=== PATIENT | male | born 1990 | race Caucasian/White ===

== ENCOUNTER 2017-10-29 00:37 | Emergency (ER) | payer SELFPAY ==
[2017-10-29 00:44] VITALS: BP 148/75
--- NOTE | 2017-10-29 01:09 | ED ---
Lower Extremity - HPI Summary HPI Summary: This is scribe Aris Roblero documenting for attending Radha Cardozo MD. This patient is a 26 year old M presenting to [facility] with a chief complaint of intermittent pain bilat in ankles for the past week. The patient rates the pain 4/10 in severity. Patient reports swelling tonight, dry and flaky skin on his ankles (worsening this past month), and erythema on his ankles the other day. Patient denies recent trauma but states that he wears work boots. He denies an abscess on his ankles beforehand. He has not taken any medications. I, Dr. Cardozo, personally performed the services described in this documentation as scribed in my presence and it is both accurate and complete. - History of Current Complaint Chief Complaint: EDExtremityLower Stated Complaint: POSSIBLE INFECTION LEFT FOOT Time Seen by Provider: 10/29/17 00:49 Hx Obtained From: Patient Onset of Pain: Days - Pain started this past week Onset/Duration: Days - Started this past week Severity Initially: Moderate Severity Currently: Moderate Pain Intensity: 4 Pain Scale Used: 0-10 Numeric Timing: Intermittent Associated Signs And Symptoms: Positive: Swelling, Redness - Allergies/Home Medications Allergies/Adverse Reactions: Allergies Allergy/AdvReac Type Severity Reaction Status Date / Time MS Penicillins [Penicillins] Allergy Hives Verified 01/20/13 10:03 PMH/Surg Hx/FS Hx/Imm Hx Endocrine/Hematology History: Denies: Hx Diabetes Cardiovascular History: Denies: Hx Coronary Artery Disease - Immunization History Date of Tetanus Vaccine: 2006 Date of Influenza Vaccine: None Infectious Disease History: No Infectious Disease History: Denies: Traveled Outside the [place] in Last 30 Days - Family History Known Family History: Negative: Cardiac Disease, Diabetes - Social History Occupation: Unemployed Substance Use Type: Reports: Marijuana Review of Systems Positive: Edema - Ankles bilaterally since tonight, Other - Intermittant pain bilaterally in ankles Positive: Other - Dry and flaky skin on his ankles that has worsened this past month. Erythema on his ankels "the other day." Denies an abscess. All Other Systems Reviewed And Are Negative: Yes Physical Exam - Summary Physical Exam Summary: VITAL SIGNS: Reviewed. GENERAL: Patient is a well-developed and nourished MALE who is lying comfortable in the stretcher. Patient is not in any acute respiratory distress. HEAD AND FACE: No signs of trauma. No ecchymosis, hematomas or skull depressions. No sinus tenderness. EYES: PERRLA, EOMI x 2, No injected conjunctiva, no nystagmus. EARS: Hearing grossly intact. Ear canals and tympanic membranes are within normal limits. MOUTH: Oropharynx within normal limits. NECK: Supple, trachea is midline, no adenopathy, no JVD, no carotid bruit, no c- spine tenderness, neck with full ROM. CHEST: Symmetric, no tenderness at palpation LUNGS: Clear to auscultation bilaterally. No wheezing or crackles. CVS: Regular rate and rhythm, S1 and S2 present, no murmurs or gallops appreciated. ABDOMEN: Soft, non-tender. No signs of distention. No rebound no guarding, and no masses palpated. Bowel sounds are normal. EXTREMITIES: Bilat LE trace edema, L more than R. 1 inch by half inch area of mild redness over medial side of L foot. NEURO: Alert and oriented x 3. No acute neurological deficits. Speech is normal and follows commands. SKIN: Dry and warm Triage Information Reviewed: Yes Vital Signs On Initial Exam: Initial Vitals Temp Pulse Resp BP Pulse Ox 98.4 F 78 18 148/75 100 10/29/17 00:42 10/29/17 00:42 10/29/17 00:42 10/29/17 00:42 10/29/17 00:42 Vital Signs Reviewed: Yes Diagnostics - Vital Signs Vital Signs Temp Pulse Resp BP Pulse Ox 10/29/17 00:42 98.4 F 78 18 148/75 100 - Laboratory Result Diagrams: 10/29/17 01:04 10/29/17 01:04 Lab Statement: Any lab studies that have been ordered have been reviewed, and results considered in the medical decision making process. Lower Extremity Course/Dx - Course Assessment/Plan: Patient presented with intermittent bilat pain in ankles for the past week. There was redness on the medial side of his L foot. Patient can be discharged home. - Diagnoses Provider Diagnoses: Cellulitis Discharge - Sign-Out/Discharge Documenting (check all that apply): Patient Departure - D/C - Discharge Plan Condition: Stable Disposition: HOME Prescriptions: Clindamycin Cap(NF) [Clindamycin Cap 300 mg Cap(NF)] 300 mg PO Q6H #30 cap Ibuprofen TAB* [Motrin TAB* 800 MG] 800 mg PO Q6H PRN #30 tab PRN Reason: Pain Patient Education Materials: Cellulitis (ED) Referrals: No Primary Care Phys,NOPCP [Primary Care Provider] - Additional Instructions: RETURN TO THE EMERGENCY DEPARTMENT FOR CHANGING OR WORSENING SYMPTOMS. FOLLOW UP WITH PCP IN 1-2 DAYS.
[2017-10-29 01:17] LABS: ABS Basophils 0 10^3/ul (0-0.2); ABS Eosinophils 0.4 10^3/ul (0-0.6); ABS Monocytes 0.6 10^3/ul (0-0.8); ABS Neutrophils 4.1 10^3/ul (1.5-7.7); ABS Nucleated RBC 0 10^3/ul; Eosinophil % 5.5 % (0-6); Hematocrit 42 % (42-52); Hemoglobin 14.3 g/dl (14.0-18.0); Lymphocyte % 27.4 % (25-47); Mean Corpuscular HGB Conc 34 g/dl (31-36); Mean Corpuscular Hemoglobin 30 pg (27-31); Mean Corpuscular Volume 87 fL (80-94); Mean Platelet Volume 7.9 um3 (7.4-10.4); Nucleated Red Blood Cells % 0; Platelet Count 232 10^3/ul (150-450); Red Blood Count 4.83 10^6/ul (4.00-5.40); Red Cell Distribution Width 13 % (10.5-15); White Blood Count 7.2 10^3/ul (3.5-10.8)
[2017-10-29 01:25] LABS: INR 0.98 (0.77-1.02)
[2017-10-29 01:33] LABS: EGFR Non-African American 105.9 (>60)
[2017-10-29] MEDS ORDERED: Clindamycin CAP* 150 MG PO ONE (01:37)
== END 2017-10-29 01:59 | disposition home or self-care (01) ==
LOC: ED 00:37
DX: L03.115 Cellulitis of right lower limb (principal); L03.116 Cellulitis of left lower limb; Z88.0 Allergy status to penicillin
CPT/HCPCS: 36415; 80053; 83735; 85025; 85379; 85610; 85730; 99282; A9270-GY

== ENCOUNTER 2017-12-01 16:09 | Emergency (ER) | payer MEDICAID ==
--- NOTE | 2017-12-01 17:31 | ED ---
Skin Complaint - HPI Summary HPI Summary: Patient complains of persistent wound to lateral right posterior foot 1 month. Patient has tried 3 courses of clindamycin, states wound and pain are increasing. Denies purulent discharge, fever, N/V, change in function or sensation. Finished last course of clindamycin yesterday. Patient unaware of initial source of wound. Denies trauma, fever, cough, sore throat, CP, SOB, N/V /D, abdominal pain, change in urine or change in BM. Medical history is none. - History of Current Complaint Chief Complaint: EDLacSutureRecheck Time Seen by Provider: 12/01/17 16:40 Stated Complaint: LT FOOT INJURY Hx Obtained From: Patient Onset/Duration: Started Weeks Ago Skin Exposure Onset/Duration: Weeks Ago Timing: Constant Onset Severity: Mild Current Severity: Mild Pain Intensity: 2 Pain Scale Used: 0-10 Numeric Skin Location: Discrete Aggravating Symptom(s): Touch Alleviating Symptom(s): Nothing Associated Signs & Symptoms: Negative - Allergy/Home Medications Allergies/Adverse Reactions: Allergies Allergy/AdvReac Type Severity Reaction Status Date / Time Penicillins Allergy Rash Verified 12/01/17 16:24 PMH/Surg Hx/FS Hx/Imm Hx Endocrine/Hematology History: Denies: Hx Anticoagulant Therapy, Hx Diabetes Cardiovascular History: Denies: Hx Cardiac Arrest, Hx Coronary Artery Disease History: Denies: Hx Dialysis Neurological History: Denies: Hx CVA - Immunization History Date of Tetanus Vaccine: 2006 Date of Influenza Vaccine: None Infectious Disease History: No Infectious Disease History: Denies: Traveled Outside the [place] in Last 30 Days - Family History Known Family History: Negative: Cardiac Disease, Diabetes - Social History Alcohol Use: Occasionally Substance Use Type: Reports: None Smoking Status (MU): Never Smoked Tobacco Review of Systems Constitutional: Negative Eyes: Negative ENT: Negative Cardiovascular: Negative Respiratory: Negative Gastrointestinal: Negative Genitourinary: Negative Musculoskeletal: Negative Skin: Other Neurological: Negative Psychological: Normal All Other Systems Reviewed And Are Negative: Yes Physical Exam - Summary Physical Exam Summary: No purulent discharge, no erythema, extra warmth, swelling, noted to wound on left medial foot. Wound appears to be healing well Triage Information Reviewed: Yes Vital Signs On Initial Exam: Initial Vitals Temp Pulse Resp BP Pulse Ox 98.6 F 74 17 150/98 100 12/01/17 16:19 12/01/17 16:19 12/01/17 16:19 12/01/17 16:19 12/01/17 16:19 Vital Signs Reviewed: Yes Appearance: Positive: Well-Appearing Skin: Positive: Warm Head/Face: Positive: Normal Head/Face Inspection Eyes: Positive: Normal Neck: Positive: Supple Respiratory/Lung Sounds: Positive: Clear to Auscultation Cardiovascular: Positive: Normal Abdomen Description: Positive: Nontender Musculoskeletal: Positive: Normal Neurological: Positive: Normal Psychiatric: Positive: Normal AVPU Assessment: Alert - Noni Coma Scale Best Eye Response: 4 - Spontaneous Best Motor Response: 6 - Obeys Commands Best Verbal Response: 5 - Oriented Coma Scale Total: 15 Diagnostics - Vital Signs Vital Signs Temp Pulse Resp BP Pulse Ox 12/01/17 16:19 98.6 F 74 17 150/98 100 - Laboratory Lab Statement: Any lab studies that have been ordered have been reviewed, and results considered in the medical decision making process. - Radiology foot Xray Interpretation: No Acute Changes Radiology Interpretation Completed By: Radiologist Course/Dx - Course Course Of Treatment: Patient complains of persistent wound to lateral right posterior foot 1 month. Patient has tried 3 courses of clindamycin, states wound and pain are increasing. Denies purulent discharge, fever, N/V, change in function or sensation. Finished last course of clindamycin yesterday. Patient unaware of initial source of wound. Denies trauma, fever, cough, sore throat, CP, SOB, N/V/D, abdominal pain, change in urine or change in BM. Medical history is none. Physical exam:No purulent discharge, no erythema, extra warmth, swelling, noted to wound on left medial foot. Wound appears to be healing well. Vital signs normal. X-ray of the foot negative. Patient started on Bactrim. Follow-up with primary care - Diagnoses Provider Diagnoses: Wound cellulitis Discharge - Sign-Out/Discharge Documenting (check all that apply): Patient Departure - Discharge Plan Condition: Stable Disposition: HOME Prescriptions: Sulfamethox/Trimethoprim DS* [Bactrim DS 800/160 TAB*] 1 tab PO BID 10 Days #20 tab Patient Education Materials: Wound Infection (ED), Acute Wound Care (ED) Referrals: No Primary Care Phys,NOPCP [Primary Care Provider] - Additional Instructions: Take antibiotics as directed. Keep wound covered with antibiotic ointment and protected with gauze. Follow-up with primary care. Return to the ED for any new or worsening symptoms - Billing Disposition and Condition Condition: STABLE Disposition: Home
--- NOTE | 2017-12-01 17:38 | RAD ---
Indication: Left foot infection. 3 views of left foot demonstrates no fracture. No other bone or joint abnormality is identified. No evidence of abnormal erosions are noted. IMPRESSION: Unremarkable left foot. No abnormal osteolysis is noted.
[2017-12-01 18:33] VITALS: BP 136/81
== END 2017-12-01 18:32 | disposition home or self-care (01) ==
LOC: ED 16:09
DX: L03.115 Cellulitis of right lower limb (principal)
CPT/HCPCS: 99282

== ENCOUNTER 2018-10-28 18:16 | Emergency (ER) | payer SELFPAY ==
[2018-10-28] MEDS ORDERED: Clindamycin CAP* 150 MG PO ONE (19:58)
--- NOTE | 2018-10-28 20:00 | ED ---
Skin Complaint - HPI Summary HPI Summary: 27-year-old male presents with right foot ulcer for the past couple days. Has a history of pyoderma. States that normally places steroid on the area if catches it early. He did not notice that it was getting worse until a couple days ago. He said he has placing Neosporin on the area. He is normally followed with [facility] but has not followed in a while. He denies any fevers or chills. Has no redness around the area. Has been draining some discharge. He is not currently on steroids beside the topical steroids. - History of Current Complaint Chief Complaint: EDExtremityLower Time Seen by Provider: 10/28/18 19:07 Stated Complaint: FOOT INJURY PER PT Pain Intensity: 5 - Allergy/Home Medications Allergies/Adverse Reactions: Allergies Allergy/AdvReac Type Severity Reaction Status Date / Time Penicillins Allergy Rash Verified 10/28/18 19:15 PMH/Surg Hx/FS Hx/Imm Hx Endocrine/Hematology History: Denies: Hx Anticoagulant Therapy, Hx Diabetes Cardiovascular History: Denies: Hx Cardiac Arrest, Hx Coronary Artery Disease History: Denies: Hx Dialysis Neurological History: Denies: Hx CVA - Immunization History Date of Tetanus Vaccine: 2006 Date of Influenza Vaccine: None Infectious Disease History: No Infectious Disease History: Denies: Traveled Outside the [place] in Last 30 Days - Family History Known Family History: Negative: Cardiac Disease, Diabetes - Social History Alcohol Use: Occasionally Substance Use Type: Reports: None Smoking Status (MU): Never Smoked Tobacco Review of Systems Negative: Fever Negative: Chest Pain Negative: Shortness Of Breath Positive: Other - right foot ulcer All Other Systems Reviewed And Are Negative: Yes Physical Exam Triage Information Reviewed: Yes Vital Signs On Initial Exam: Initial Vitals Temp Pulse Resp BP Pulse Ox 99 F 83 16 155/85 98 10/28/18 18:23 10/28/18 18:23 10/28/18 18:23 10/28/18 18:23 10/28/18 18:23 Vital Signs Reviewed: Yes Appearance: Positive: Well-Appearing Skin: Positive: Warm, Dry, Other - 2cm ulcer to right foot Head/Face: Positive: Normal Head/Face Inspection Eyes: Positive: Normal, Conjunctiva Clear ENT: Positive: Pharynx normal Respiratory/Lung Sounds: Positive: Clear to Auscultation, Breath Sounds Present Cardiovascular: Positive: Normal, RRR Musculoskeletal: Positive: Normal Neurological: Positive: Normal Psychiatric: Positive: Normal Diagnostics - Vital Signs Vital Signs Temp Pulse Resp BP Pulse Ox 10/28/18 18:23 99 F 83 16 155/85 98 - Laboratory Lab Statement: Any lab studies that have been ordered have been reviewed, and results considered in the medical decision making process. Course/Dx - Course Course Of Treatment: 27-year-old male presents with right foot ulcer for the past couple days. Has a history of pyoderma. States that normally places steroid on the area if catches it early. He did not notice that it was getting worse until a couple days ago. He said he has placing Neosporin on the area. He is normally followed with [facility] but has not followed in a while. He denies any fevers or chills. Has no redness around the area. Has been draining some discharge. He is not currently on steroids beside the topical steroids. On exam has a 2 cm ulcer on right ankle. Some erythema around the ulcer. wound culture sent to lab was acutually of right ankle ulcer. Patient does not have insurance so will place on Clindamycin and give in urgent rx. Discussed needs to places steroid and topical antibiotics on the area. Told should follow with podiatry. Warned if develop worsening symptoms return. Patient understands agrees with plan. - Differential Diagnoses - Skin Complaint Differential Diagnoses: Abscess, Cellulitis, Contact Dermatitis - Diagnoses Provider Diagnoses: Right foot ulcer Discharge - Sign-Out/Discharge Documenting (check all that apply): Patient Departure Patient Received Moderate/Deep Sedation with Procedure: No - Discharge Plan Condition: Good Disposition: HOME Prescriptions: Clindamycin Cap(NF) [Clindamycin Cap 300 mg Cap(NF)] 300 mg PO TID #29 cap Patient Education Materials: Cellulitis (ED) Referrals: Monster Ardon MD [Primary Care Provider] - Additional Instructions: wash area with soap and water and apply steriod and neosporin and keep covered take clindamycin three times a day for 10 days follow up with podiatry Return to ED if develop any new or worsening symptoms - Billing Disposition and Condition Condition: GOOD Disposition: Home
[2018-10-28 20:18] VITALS: BP 138/84
== END 2018-10-28 20:17 | disposition home or self-care (01) ==
LOC: ED 18:16
DX: L97.319 Non-pressure chronic ulcer of right ankle with unspecified severity (principal); Z88.0 Allergy status to penicillin
CPT/HCPCS: 87070; 87077; 87186; 87205; 87640; 87641; 99282; A9270-GY